=== PATIENT | male | born 2000 | race Caucasian/White ===

== ENCOUNTER 2024-07-29 16:07 | Emergency (ER) | payer BC, SELFPAY ==
[2024-07-29 16:09] VITALS: BP 139/69; PULSE 60; RESP 13; TEMP 36.8; O2SAT 98; BMI 21.4
--- NOTE | 2024-07-29 16:10 | HMH.EDGENADL ---
Discharge Plan Disposition Patient Disposition: Home, Self-Care Condition: Good Prescriptions Prescriptions: New metoclopramide HCl [Reglan] 5 mg tablet 5 mg PO Q6H PRN (Reason: nausea and vomiting) Qty: 30 0RF ondansetron 4 mg tablet,disintegrating 4 mg PO Q6H PRN (Reason: nausea and vomiting) Qty: 10 0RF Referrals Follow up/Referrals: Verona Mcmullen APRN [Nurse Practitioner] - See instructions Refugio Yang [Primary Care Provider] - See instructions Activity Restrictions/Add. Instructions Additional Instructions/Restrictions: I highly recommend complete cessation of all forms of cannabis use. I have referred you to behavioral health to help manage your anxiety symptoms. Follow-up with your PCP for no improvement or worsening symptoms or return to the ER as needed Clinical Impressions Clinical Impression: Cannabis hyperemesis syndrome concurrent with and due to cannabis abuse Instructions Patient Instructions: DI for Diarrhea and Traveler's Diarrhea -- Adult, DI for Diarrhea and Traveler's Diarrhea -- Child, DI for Nausea -- Adult, DI for Nausea -- Child Print Language Print Language: Greenlandic Discharge ED Provider: Sergey Welch General Adult HPI <HAILEY Hernandez - Last Filed: 07/29/24 17:32> General Chief complaint: Nausea/Vomiting/Diarrhea Stated complaint: nausea,vomiting Time Seen by Provider: 07/29/24 16:10 History of Present Illness HPI narrative: Patient presents for evaluation of nausea vomiting anxiety. Patient has known hyperemesis of cannabis syndrome as well as generalized anxiety. He last had an episode in September and has been doing well with cessation however his anxiety is been out of control so he has been trying to smoke to control it. He had acute onset today of nausea vomiting and abdominal discomfort. He had some improvement with hot shower but it came back. He has no antiemetics at home. He denies any chest pain fever chills hemoptysis hematochezia melena hematemesis diarrhea Related Data Previous Rx's ?Medication ?Instructions ?Recorded metoclopramide HCl 5 mg tablet 5 mg PO Q6H PRN nausea and 07/29/24 (Reglan) vomiting #30 tabs ondansetron 4 mg disintegrating 4 mg PO Q6H PRN nausea and 07/29/24 tablet vomiting #10 tabs Allergies Allergy/AdvReac Type Severity Reaction Status Date / Time prochlorperazine Allergy Anxiety Verified 07/29/24 16:21 [From Compazine] [facility] <HAILEY Hernandez - Last Filed: 07/29/24 17:32> [facility] Disclaimer: The information contained in this section may have been updated after the patient was seen, as this information can be updated by other users. Social History (Updated 07/29/24 @ 17:32 by HAILEY Hernandez) Smoking Status: Current every day smoker alcohol intake: never current occupational status: employed Travel in the last 8 weeks: None <HAILEY Hernandez - Last Filed: 07/29/24 17:32> ROS Obtained: Yes Systems reviewed as appropriate & no additional complaints except as documented Physical Exam <HAILEY Hernandez - Last Filed: 07/29/24 17:32> General General appearance: in no apparent distress and anxious Respiratory Respiratory exam: Present normal lung sounds bilaterally Cardiovascular Cardiovascular exam: Present regular rate Neurological Exam Neurological exam: Present alert and oriented X3 Psychiatric Psychiatric exam: Present anxious Medical Decision Making <HAILEY Hernandez - Last Filed: 07/29/24 17:32> Medical Records Medical records reviewed: Yes I reviewed the patient's medical records. Screening: Per USPSTF and CDC recommendations, given the prevalence of disease in our region, it is our hospital?s policy to screen for HIV and viral Hepatitis for all patients aged 18 and over and those with ongoing risk factors. Kojo Inquiry Pt receiving controlled substance: No Vital Signs: 07/29/24 16:09 07/29/24 17:36 Temperature 98.2 F 98.0 F Temperature Source Oral Oral Pulse Rate 65 Pulse Rate [Left Radial] 60 Respiratory Rate 13 16 Blood Pressure 102/45 L Blood Pressure [Right Arm] 139/69 Blood Pressure Mean [Right Arm] 92 Blood Pressure Source Automatic Cuff Blood Pressure Position Sitting 02 Sat by Pulse Oximetry 98 Oxygen Delivery Method Room Air Room Air Orders (Tests/Meds): ED MEDICATIONS Discontinued Medications Generic Name Dose Route Start Last Admin Trade Name Freq PRN Reason Stop Dose Admin Hydroxyzine HCl 50 mg 07/29/24 16:22 07/29/24 16:28 Hydroxyzine 50mg/Ml Vial IM 07/29/24 16:23 50 mg ONCE ONE Administration Ondansetron HCl 8 mg 07/29/24 16:22 07/29/24 16:29 Ondansetron 4mg Odt SL 07/29/24 16:23 8 mg ONCE ONE Administration Medical Decision Narrative: In summary patient is a 23-year-old male who presents to the emergency department for evaluation of nausea vomiting abdominal pain. Patient is hemodynamically stable upon arrival, afebrile. Physical exam is remarkable for an anxious but well-nourished well-developed 23-year-old male who otherwise is in no acute distress. Abdominal exam is remarkable for a soft benign abdominal exam although he reports some generalized tenderness to palpation bowel sounds are normal active. There is no rebound or guarding or rigidity. Patient is anxious but his Glascow coma score is 15 and he is awake alert and oriented to person place and circumstance.. Differential diagnosis includes cannabis hyperemesis versus anxiety etc. Initial workup workup was considered however patient has no red flags suggesting a diagnosis different than his baseline known hyperemesis of cannabis considering that he reports this is exactly how he is experienced to before last workup is deferred. Initial interventions include p.o. Zofran and IM Vistaril. Upon repeat evaluation patient has had nearly complete resolution of his symptoms and is tolerating p.o. intake. Given this patient is appropriate for discharge with prescription for Zofran and Reglan and strong recommendations for complete cessation permanently of all cannabis forms. I have referred the patient to behavioral health for his anxiety disorder. <Sergey Welch MD - Last Filed: 07/29/24 20:39> Vital Signs: 07/29/24 16:09 07/29/24 17:36 Temperature 98.2 F 98.0 F Temperature Source Oral Oral Pulse Rate 65 Pulse Rate [Left Radial] 60 Respiratory Rate 13 16 Blood Pressure 102/45 L Blood Pressure [Right Arm] 139/69 Blood Pressure Mean [Right Arm] 92 Blood Pressure Source Automatic Cuff Blood Pressure Position Sitting 02 Sat by Pulse Oximetry 98 Oxygen Delivery Method Room Air Room Air Orders (Tests/Meds): ED MEDICATIONS Discontinued Medications Generic Name Dose Route Start Last Admin Trade Name Freq PRN Reason Stop Dose Admin Hydroxyzine HCl 50 mg 07/29/24 16:22 07/29/24 16:28 Hydroxyzine 50mg/Ml Vial IM 07/29/24 16:23 50 mg ONCE ONE Administration Ondansetron HCl 8 mg 07/29/24 16:22 07/29/24 16:29 Ondansetron 4mg Odt SL 07/29/24 16:23 8 mg ONCE ONE Administration Medical Decision Narrative: In summary patient is a 23-year-old male who presents to the emergency department for evaluation of nausea vomiting abdominal pain. Patient is hemodynamically stable upon arrival, afebrile. Physical exam is remarkable for an anxious but well-nourished well-developed 23-year-old male who otherwise is in no acute distress. Abdominal exam is remarkable for a soft benign abdominal exam although he reports some generalized tenderness to palpation bowel sounds are normal active. There is no rebound or guarding or rigidity. Patient is anxious but his Glascow coma score is 15 and he is awake alert and oriented to person place and circumstance.. Differential diagnosis includes cannabis hyperemesis versus anxiety etc. Initial workup workup was considered however patient has no red flags suggesting a diagnosis different than his baseline known hyperemesis of cannabis considering that he reports this is exactly how he is experienced to before last workup is deferred. Initial interventions include p.o. Zofran and IM Vistaril. Upon repeat evaluation patient has had nearly complete resolution of his symptoms and is tolerating p.o. intake. Given this patient is appropriate for discharge with prescription for Zofran and Reglan and strong recommendations for complete cessation permanently of all cannabis forms. I have referred the patient to behavioral health for his anxiety disorder. I was consulted by the ANDRES, and we discussed the complexity of the problems being addressed. I approved the treatment and management plan for this patient's care in the Emergency Department, thus performing a substantive portion of the medical decision making. Sergey Welch MD Critical Care <HAILEY Hernandez - Last Filed: 07/29/24 17:32> Critical Care Time Critical Care Time: No
[2024-07-29] MEDS: hydrOXYzine 50MG/ML VIAL 50 MG IM (16:28)
[2024-07-29] MEDS: ONDANSETRON 4MG ODT 8 MG SL (16:29)
[2024-07-29 17:36] VITALS: BP 102/45; PULSE 65; RESP 16; TEMP 36.7; O2SAT 97
== END 2024-07-29 17:37 | disposition home or self-care (01) ==
PROVIDERS: Emergency Provider Emergency Medicine; PCP Internal Medicine
DX: F12.188 Cannabis abuse with other cannabis-induced disorder (principal); R11.2 Nausea with vomiting, unspecified; R10.9 Unspecified abdominal pain
CPT/HCPCS: 96372; 99282; J3410; Q0162

== ENCOUNTER 2024-08-28 06:17 | Emergency (ER) | payer BC, SELFPAY ==
[2024-08-28 06:19] VITALS: BP 154/97; PULSE 100; RESP 22; TEMP 36.9; O2SAT 99; BMI 21.2
--- NOTE | 2024-08-28 06:26 | HMH.EDGENADL ---
Discharge Plan Disposition Patient Disposition: Home, Self-Care Prescriptions Prescriptions: New promethazine 12.5 mg suppository 12.5 mg VA TID PRN (Reason: nausea and vomiting) Qty: 12 0RF Rx Instructions: do not give 3rd daily dose after evening meal or within 4hr before bed ondansetron 4 mg tablet,disintegrating 4 mg PO Q6H PRN (Reason: nausea and vomiting) 5 Days Qty: 20 0RF No Action metoclopramide HCl [Reglan] 5 mg tablet 5 mg PO Q6H PRN (Reason: nausea and vomiting) Qty: 30 0RF ondansetron 4 mg tablet,disintegrating 4 mg PO Q6H PRN (Reason: nausea and vomiting) Qty: 10 0RF Referrals Follow up/Referrals: Refugio Yang [Primary Care Provider] - See instructions Activity Restrictions/Add. Instructions Additional Instructions/Restrictions: Please return with any inability to tolerate anything by mouth and return with any significant worsening symptoms. Clinical Impressions Clinical Impression: Cannabis hyperemesis syndrome concurrent with and due to cannabis abuse Instructions Patient Instructions: DI for Diarrhea and Traveler's Diarrhea -- Adult, DI for Diarrhea and Traveler's Diarrhea -- Child, DI for Nausea -- Adult, DI for Nausea -- Child Print Language Print Language: [place] Islander Discharge ED Provider: Ginger Jain Adult HPI <Ginger Jain MD - Last Filed: 08/28/24 07:04> General Chief complaint: Nausea/Vomiting/Diarrhea Stated complaint: vomiting, shaking, dizziness Time Seen by Provider: 08/28/24 06:24 Mode of Arrival: Ambulatory Source of Information: Patient Limitations: No Limitations Description of Symptoms (Recalled from ER Triage Doc. by RN): 24 M presents with c/o CHS that started this morning. Patient reports everytime he uses THC he has these episodes of hyperemesis. He has vomited several times this morning. He states he used THC yesterday. Patient reports abdominal cramping, nausea, vomiting, and chills. Denies fever, diarrhea, chest pain, or shortness of air. History of Present Illness HPI narrative: 24-year-old male presents to the ER with vomiting and shakiness starting in the last day. Patient reports anytime he uses THC he gets severe episodes of hyperemesis. He admits that when he stops he no longer has these episodes, however yesterday he used THC and since that time he has been developing abdominal cramping, nausea, vomiting, and shakiness. He states he has chills but has not had fever, body aches, diarrhea, chest pain, shortness of breath, headache, numbness, tingling, or weakness. Patient states he has had 3-4 episodes of emesis just in the last few hours, nonbloody, nonbilious. He reports his symptoms are 100% consistent with previous episodes of cannabis hyperemesis. He states in the past Zofran and another medication that he does not recall the name of have worked for him. He thought it was similar to haloperidol. Patient knows he cannot use cannabis or THC products but nonetheless did so yesterday and since that time has been dealing with the side effects. He has no other complaints or concerns. Related Data Previous Rx's ?Medication ?Instructions ?Recorded metoclopramide HCl 5 mg tablet 5 mg PO Q6H PRN nausea and 07/29/24 (Reglan) vomiting #30 tabs ondansetron 4 mg disintegrating 4 mg PO Q6H PRN nausea and 07/29/24 tablet vomiting #10 tabs ondansetron 4 mg disintegrating 4 mg PO Q6H PRN nausea and 08/28/24 tablet vomiting 5 days #20 tabs promethazine 12.5 mg rectal 12.5 mg VA TID PRN nausea and 08/28/24 suppository vomiting #12 ea Allergies Allergy/AdvReac Type Severity Reaction Status Date / Time prochlorperazine (From Allergy Anxiety Verified 07/29/24 16:21 Compazine) [facility] <Ginger Jain MD - Last Filed: 08/28/24 07:04> [facility] Disclaimer: The information contained in this section may have been updated after the patient was seen, as this information can be updated by other users. Social History (Updated 08/28/24 @ 07:04 by Ginger Jain MD) Smoking Status: Current every day smoker alcohol intake: never current occupational status: employed Travel in the last 8 weeks: None <Ginger Jain MD - Last Filed: 08/28/24 07:04> ROS Obtained: Yes Systems reviewed as appropriate & no additional complaints except as documented ROS per HPI Physical Exam <Ginger Jain MD - Last Filed: 08/28/24 07:04> General General appearance: alert and in no apparent distress Head Head exam: atraumatic and normocephalic Eye Eye exam: Present PERRL and EOMI ENT ENT exam: Present mucous membranes moist Neck Neck exam: Present normal inspection and full ROM Chest Chest inspection: Present symmetric chest wall rise Respiratory Respiratory exam: Absent respiratory distress or stridor Cardiovascular Cardiovascular exam: Present regular rate and normal rhythm Abdominal Exam Abdominal exam: Present soft; Absent distention or tenderness Extremities Exam Extremities exam: Present full ROM Neurological Exam Neurological exam: Present alert and oriented X3; Absent motor sensory deficit Psychiatric Psychiatric exam: Present normal affect and normal mood Skin Skin exam: Present warm and dry Medical Decision Making <Ginger Jain MD - Last Filed: 08/28/24 07:04> Medical Records Medical records reviewed: Yes I reviewed the patient's medical records. Screening: Per USPSTF and CDC recommendations, given the prevalence of disease in our region, it is our hospital?s policy to screen for HIV and viral Hepatitis for all patients aged 18 and over and those with ongoing risk factors. MR Comment: Most recent visit to the ER in July 2024 patient had similar symptoms and received Zofran and hydroxyzine. He was referred to behavioral health but per my review of records he has not yet followed up with them. Kojo Inquiry Pt receiving controlled substance: No Vital Signs: 08/28/24 06:19 08/28/24 07:00 08/28/24 07:30 Temperature 98.4 F Temperature Source Axillary Pulse Rate 62 78 Pulse Rate [Left] 100 H Respiratory Rate 22 17 Blood Pressure 149/110 H 136/94 H Blood Pressure [Right Arm] 154/97 H Blood Pressure Mean 123 117 Blood Pressure Mean [Right Arm] 116 Blood Pressure Source Blood Pressure Source [Right Arm] Automatic Cuff Blood Pressure Position [Right Arm] Sitting 02 Sat by Pulse Oximetry 99 99 100 Oxygen Delivery Method Room Air Room Air Room Air 08/28/24 08:00 08/28/24 08:23 Temperature 98.4 F Temperature Source Oral Pulse Rate 56 L 75 Pulse Rate [Left] Respiratory Rate 14 16 Blood Pressure 137/84 132/79 Blood Pressure [Right Arm] Blood Pressure Mean 107 Blood Pressure Mean [Right Arm] Blood Pressure Source Automatic Cuff Blood Pressure Source [Right Arm] Blood Pressure Position [Right Arm] 02 Sat by Pulse Oximetry 99 Oxygen Delivery Method Room Air Room Air Lab Data Lab Results 08/28/24 06:33: WBC 9.1, RBC 5.17, Hgb 15.1, Hct 42.5, MCV 82.1, MCH 29.1, MCHC 35.4, RDW 13.7, Plt Count 325, MPV 7.3 L, Neut % (Auto) 59.7, Lymph % (Auto) 27.7, Shackelford % (Auto) 6.3, Eos % (Auto) 5.5, Baso % (Auto) 0.9, Neut # (Auto) 5.4, Lymph # (Auto) 2.5, Shackelford # (Auto) 0.6, Eos # (Auto) 0.5 H, Baso # (Auto) 0.1, Sodium 139, Potassium 3.4 L, Chloride 104, Carbon Dioxide 15 L, Anion Gap 23.4 H, BUN 12, Creatinine 0.90, Estimated Creat Clear 99, Estimated GFR 106, Est GFR ( Amer) 128, Glucose 199 H, Calcium 10.0, Total Bilirubin 0.7, AST 33, ALT 27, Alkaline Phosphatase 88, Total Protein 8.0, Albumin 5.0, Globulin 3.0, Albumin/Globulin Ratio 1.7 08/28/24 06:33 08/28/24 06:33 Orders (Tests/Meds): ED MEDICATIONS Discontinued Medications Generic Name Dose Route Start Last Admin Trade Name Freq PRN Reason Stop Dose Admin Droperidol 2.5 mg 08/28/24 06:24 11 06:29 Droperidol 5mg/2ml Vial IV 08/28/24 06:25 2.5 mg ONCE ONE Administration Sodium Chloride 1,000 mls @ 999 mls/hr 08/28/24 06:24 08/28/24 06:29 Sod Chlor 0.9% 1000ml Bag IV 08/28/24 07:24 999 mls/hr .Q1H1M ONE Administration ORDERS Category Date Time Status CBC w/Auto Diff [Complete Blood Count Auto Diff] Stat Lab 08/28/24 06:33 Completed CMP [Comprehensive Metabolic Panel] Stat Lab 08/28/24 06:33 Completed HIV (1&2) Antibody Rapid Stat Lab 08/28/24 06:33 Received Hep C Ab with Reflex to RNA Stat Lab 08/28/24 06:33 Received Medical Decision Narrative: In summary, this 24-year-old male with comorbidities as described in HPI presents to the emergency department today with concerns of cannabis hyperemesis admitting to THC use in the last day and now having vomiting and shakiness. On initial evaluation patient is hemodynamically stable though he is tachycardic, afebrile, overall he is nontoxic-appearing, nontender abdomen, GCS 15. He has chills and is shivering but does not have any findings of seizure-like activity. Differential diagnosis includes but is not limited to cannabis hyperemesis, electrolyte abnormality, dehydration, consider the possibility of more severe intra-abdominal pathology but I have very low suspicion for anything like bowel obstruction, mesenteric ischemia, colitis since he has only mild mid abdominal discomfort and no reproducible pain on palpation. Based on these concerns, I ordered serum labs, ECG to evaluate QT. ECG personally interpreted demonstrates normal sinus rhythm, rate 91, normal axis, normal VA and QTc, no STEMI. Patient received IV fluids, droperidol for treatment. Droperidol administered at 0640. Patient placed into ED observation at that time for continued monitoring per hospital policy for cardiac arrhythmia. 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 Labs personally reviewed demonstrate nonactionable CBC, CMP pending at the time of physician handoff. Patient's symptoms dramatically improved since receiving droperidol. Patient brought to Dr. Zavala for continued management in stable condition.. <Maribel Zavala MD - Last Filed: 08/28/24 08:26> Vital Signs: 08/28/24 06:19 08/28/24 07:00 08/28/24 07:30 Temperature 98.4 F Temperature Source Axillary Pulse Rate 62 78 Pulse Rate [Left] 100 H Respiratory Rate 22 17 Blood Pressure 149/110 H 136/94 H Blood Pressure [Right Arm] 154/97 H Blood Pressure Mean 123 117 Blood Pressure Mean [Right Arm] 116 Blood Pressure Source Blood Pressure Source [Right Arm] Automatic Cuff Blood Pressure Position [Right Arm] Sitting 02 Sat by Pulse Oximetry 99 99 100 Oxygen Delivery Method Room Air Room Air Room Air 08/28/24 08:00 08/28/24 08:23 Temperature 98.4 F Temperature Source Oral Pulse Rate 56 L 75 Pulse Rate [Left] Respiratory Rate 14 16 Blood Pressure 137/84 132/79 Blood Pressure [Right Arm] Blood Pressure Mean 107 Blood Pressure Mean [Right Arm] Blood Pressure Source Automatic Cuff Blood Pressure Source [Right Arm] Blood Pressure Position [Right Arm] 02 Sat by Pulse Oximetry 99 Oxygen Delivery Method Room Air Room Air Lab Data Lab results reviewed: Yes I reviewed the patient's lab results. Lab Results 08/28/24 06:33: WBC 9.1, RBC 5.17, Hgb 15.1, Hct 42.5, MCV 82.1, MCH 29.1, MCHC 35.4, RDW 13.7, Plt Count 325, MPV 7.3 L, Neut % (Auto) 59.7, Lymph % (Auto) 27.7, Shackelford % (Auto) 6.3, Eos % (Auto) 5.5, Baso % (Auto) 0.9, Neut # (Auto) 5.4, Lymph # (Auto) 2.5, Shackelford # (Auto) 0.6, Eos # (Auto) 0.5 H, Baso # (Auto) 0.1, Sodium 139, Potassium 3.4 L, Chloride 104, Carbon Dioxide 15 L, Anion Gap 23.4 H, BUN 12, Creatinine 0.90, Estimated Creat Clear 99, Estimated GFR 106, Est GFR ( Amer) 128, Glucose 199 H, Calcium 10.0, Total Bilirubin 0.7, AST 33, ALT 27, Alkaline Phosphatase 88, Total Protein 8.0, Albumin 5.0, Globulin 3.0, Albumin/Globulin Ratio 1.7 Orders (Tests/Meds): ED MEDICATIONS Discontinued Medications Generic Name Dose Route Start Last Admin Trade Name Freq PRN Reason Stop Dose Admin Droperidol 2.5 mg 08/28/24 06:24 08/28/24 06:29 Droperidol 5mg/2ml Vial IV 08/28/24 06:25 2.5 mg ONCE ONE Administration Sodium Chloride 1,000 mls @ 999 mls/hr 08/28/24 06:24 08/28/24 06:29 Sod Chlor 0.9% 1000ml Bag IV 08/28/24 07:24 999 mls/hr .Q1H1M ONE Administration ORDERS Category Date Time Status CBC w/Auto Diff [Complete Blood Count Auto Diff] Stat Lab 08/28/24 06:33 Completed CMP [Comprehensive Metabolic Panel] Stat Lab 08/28/24 06:33 Completed HIV (1&2) Antibody Rapid Stat Lab 08/28/24 06:33 Received Hep C Ab with Reflex to RNA Stat Lab 08/28/24 06:33 Received Medical Decision Narrative: In summary, this 24-year-old male with comorbidities as described in HPI presents to the emergency department today with concerns of cannabis hyperemesis admitting to THC use in the last day and now having vomiting and shakiness. On initial evaluation patient is hemodynamically stable though he is tachycardic, afebrile, overall he is nontoxic-appearing, nontender abdomen, GCS 15. He has chills and is shivering but does not have any findings of seizure-like activity. Differential diagnosis includes but is not limited to cannabis hyperemesis, electrolyte abnormality, dehydration, consider the possibility of more severe intra-abdominal pathology but I have very low suspicion for anything like bowel obstruction, mesenteric ischemia, colitis since he has only mild mid abdominal discomfort and no reproducible pain on palpation. Based on these concerns, I ordered serum labs, ECG to evaluate QT. ECG personally interpreted demonstrates normal sinus rhythm, rate 91, normal axis, normal VA and QTc, no STEMI. Patient received IV fluids, droperidol for treatment. Droperidol administered at 0640. Patient placed into ED observation at that time for continued monitoring per hospital policy for cardiac arrhythmia. 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 Labs personally reviewed demonstrate nonactionable CBC, CMP pending at the time of physician handoff. Patient's symptoms dramatically improved since receiving droperidol. Patient brought to Dr. Zavala for continued management in stable condition.. Reassessment 8:26 AM patient feeling significantly better no persistent nausea vomiting emergency department. Serial exams are benign. Labs unremarkable from an emergency standpoint. He has been given a prescription for Zofran and Phenergan suppositories return precautions emphasized he is discharged in stable improved condition. Critical Care <Ginger Jain MD - Last Filed: 08/28/24 07:04> Critical Care Time Critical Care Time: No
[2024-08-28] MEDS: droPERidol 5MG/2ML VIAL 2.5 MG IV (06:29)
[2024-08-28] MEDS: 0.9 % SODIUM CHLORIDE 1000ML 1,000 ML 999 ML IV (06:29)
--- NOTE | 2024-08-28 06:38 | ECG_ITS ---
APPROVED REPORT Exam: Resting ECG HR:91 bpm ECG Measurements Heart Rate 91 AXES HI 128 P 69 QRSd 99 QRS 50 QT 363 T 68 QTc 411 Conclusion SINUS RHYTHM WITH MARKED SINUS ARRHYTHMIA POSSIBLE LEFT ATRIAL ENLARGEMENT [-0.1mV P-WAVE IN V1/V2] INCOMPLETE RIGHT BUNDLE BRANCH BLOCK [90+ ms QRS DURATION, TERMINAL R IN V1/V2, 40+ ms S IN I/aVL/V4/V5/V6] BORDERLINE ECG Electronically signed by : PARAMJIT DELEON, 08/28/2024 23:30:52
[2024-08-28 06:47] LABS: Basophils # 0.1 K/mm3 (0-0.2); Basophils % 0.9 % (0.1-2.0); Eosinophils # 0.5 K/mm3 (0.0-0.4); Eosinophils % 5.5 % (0.1-12.0); Hematocrit 42.5 % (42.0-52.0); Hemoglobin 15.1 g/dL (14.1-18.0); Lymphocytes # 2.5 K/mm3 (0.7-4.5); Lymphocytes % 27.7 % (10-50); Mean Corpuscular HGB Conc 35.4 g/dL (31.8-35.4); Mean Corpuscular Hemoglobin 29.1 pg (27.0-31.2); Mean Corpuscular Volume 82.1 fl (80-94); Mean Platelet Volume 7.3 fl (7.4-10.4); Monocytes # 0.6 K/mm3 (0.1-1.0); Monocytes % 6.3 % (1.7-9.3); Neutrophils # 5.4 K/mm3 (1.8-7.8); Neutrophils % 59.7 % (37.0-80.0); Platelet Count 325 K/mm3 (142-424); Red Blood Count 5.17 M/mm3 (4.60-6.20); Red Cell Distribution Width 13.7 % (11.5-17.5); White Blood Count 9.1 K/mm3 (4.8-10.8)
[2024-08-28 06:55] LABS: Alanine Aminotransferase 27 U/L (12-78); Albumin/Globulin Ratio 1.7 (1.1-1.8); Alkaline Phosphatase 88 U/L (38-126); Anion Gap 23.4 mEq/L (5-15); Aspartate Amino Transferase 33 U/L (17-59); Bilirubin,Total 0.7 mg/dl (0.2-1.3); Blood Urea Nitrogen 12 mg/dl (9-20); Carbon Dioxide 15 mmol/L (22.0-30.0); Chloride 104 mmol/L (98-107); Creatinine Clearance Estimated 99 mL/min (50-200); Estimated Glomerular Filt Rate 106 ml/min (>60); GFR (African American) 128 ML/MIN (>60); Glucose 199 mg/dl (74-100); Potassium 3.4 mmoL/L (3.5-5.1); Sodium 139 mmol/L (136-145)
[2024-08-28 07:00] VITALS: BP 149/110; PULSE 62; RESP 17; O2SAT 99
[2024-08-28 07:30] VITALS: BP 136/94; PULSE 78; O2SAT 100
--- NOTE | 2024-08-28 07:41 | PC.NURSE ---
ROUNDED ON PT, NO NEEDS AT THIS TIME. CALL LIGHT WITHIN REACH
[2024-08-28 08:00] VITALS: BP 137/84; PULSE 56; RESP 14; O2SAT 99
--- NOTE | 2024-08-28 08:21 | PC.NURSE ---
DR PATTERSON AT BEDSIDE TO EVALUATE PT
[2024-08-28 08:23] VITALS: BP 132/79; PULSE 75; RESP 16; TEMP 36.9; O2SAT 97
[2024-08-28 12:34] LABS: HIV (1&2) Antibody Rapid NONREACTIVE (NONREACTIVE)
[2024-08-29 08:18] LABS: HCV Ab Non Reactive (Non Reactive)
== END 2024-08-28 08:33 | disposition home or self-care (01) ==
PROVIDERS: Emergency Provider Emergency Medicine; PCP Internal Medicine
DX: F12.188 Cannabis abuse with other cannabis-induced disorder (principal); R11.2 Nausea with vomiting, unspecified; R10.9 Unspecified abdominal pain; R25.9 Unspecified abnormal involuntary movements; R68.83 Chills (without fever)
CPT/HCPCS: 80053; 85025; 86803; 87389; 93005; 96361; 96374; 99283; J1790; J7030